=== PATIENT | male | born 1950 | race Caucasian/White ===

== ENCOUNTER 2017-04-17 11:21 | Emergency (ER) | payer MEDICARE ==
[2017-04-17] MEDS ORDERED: MECLIZINE HCL 25 MG TABLET ONE (12:07)
[2017-04-17 12:14] LABS: BASOPHILS % (AUTO) 0.6 % (0.0-5.0); EOSINOPHILS % (AUTO) 2.3 % (0.0-8.0); HEMATOCRIT 46.3 % (42-54); LYMPHOCYTES % (AUTO) 16.2 % (21.0-51.0); MEAN CORPUSCULAR HEMOGLOBIN 30.7 pg (27.0-33.0); MEAN CORPUSCULAR HGB CONC 34.4 g/dL (32.0-36.0); MEAN CORPUSCULAR VOLUME 89.3 fL (79-99); MONOCYTES % (AUTO) 7.7 % (3.0-13.0); NEUTROPHILS % (AUTO) 73.2 % (40.0-77.0); PLATELET COUNT (AUTO) 285 K/uL (130-400); RED BLOOD CELL COUNT(AUTO) 5.18 MIL/uL (4.50-6.20); RED CELL DISTRIBUTION WIDTH 13.6 % (11.0-15.5); WHITE BLOOD COUNT (AUTO) 7.8 K/uL (4.8-10.8)
[2017-04-17 12:23] LABS: POTASSIUM 4.1 mmol/L (3.5-5.1)
[2017-04-17 12:30] LABS: ALBUMIN 3.9 g/dL (3.5-5.0); BILIRUBIN,TOTAL 0.5 mg/dL (0.2-1.0); TOTAL PROTEIN, SERUM 7.5 g/dL (6.0-8.3)
== END 2017-04-17 15:05 | disposition home or self-care (01) ==
LOC: EDH 11:21
DX: R42 Dizziness and giddiness (principal); R51 Headache; I10 Essential (primary) hypertension; Z91.013 Allergy to seafood
CPT/HCPCS: 36415; 70450; 80053; 82550; 84484; 85025; 93005